=== PATIENT | male | born 1965 | race Caucasian/White ===

== ENCOUNTER → 2020-04-27 | Outpatient (CLI) | payer BC, OTHER ==
--- NOTE | 2020-04-27 23:48 | RAD ---
INDICATION: Reason: CERVICALGIA / Spl. Instructions: / History: COMPARISON: None. IMPRESSION: Cervical spine: 3 views obtained. Degenerative changes of the cervical spine with osteophyte formatio n at the vertebral body endplates. Prevertebral soft tissues are unremarkable. No evidence of acute f racture or dislocation. Thoracic spine: 4 views obtained. Some limitation at the upper thoracic spine secondary to overlap of structures. Mild degenerative changes with osteophyte formation. No evidence of dislocation. Definit e acute fracture line is not seen. Electronically signed by: Darrius Peng MD (04/27/2020 11:46 PM) [id number]
== END ==
LOC: RAD 17:14
PROVIDERS: ATTEND Family Medicine
DX: M47.812 Spondylosis without myelopathy or radiculopathy, cervical region (principal); M47.814 Spondylosis without myelopathy or radiculopathy, thoracic region; M25.78 Osteophyte, vertebrae
CPT/HCPCS: 72040; 72072